=== PATIENT | female | born 1960 | race Asian ===

== ENCOUNTER 2023-11-17 06:25 | Day surgery (SDC) | payer OTHER ==
[~2023-11-17] VITALS: Ht 165.1 cm; Wt 68.1 kg
[2023-11-17] MEDS ORDERED: SODIUM CHLORIDE 0.9% 1,000 ML ONE (06:29)
[2023-11-17] MEDS: SODIUM CHLORIDE 0.9% 1,000 ML IV ONE (07:37)
[2023-11-17] MEDS ORDERED: FentaNYL CITRATE PF 100 MCG/2 ML VIAL ONE (08:02)
[2023-11-17] MEDS ORDERED: MIDAZOLAM HCL 2 MG/2 ML VIAL ONE (08:03)
[2023-11-17] MEDS ORDERED: MONT-40 PO (08:17)
[2023-11-17] MEDS ORDERED: ROSU10TA72 PO (08:17)
[2023-11-17] MEDS ORDERED: FAMO20TA8 PO (08:17)
[2023-11-17] MEDS ORDERED: LEVO112T7 PO (08:17)
[2023-11-17 09:26] VITALS: PULSE 118; RESP 22; O2SAT 99
[2023-11-17] MEDS: MethylPREDNISolone SOD SUCC 125 MG/2 ML VIAL IVP ONE (10:11)
[2023-11-17] MEDS ORDERED: ALBUTEROL SULFATE 2.5 MG/0.5 ML NEB SOLUTION NEB ONE (12:00)
[2023-11-17] MEDS ORDERED: BENZOCAINE 20% 50 MCG/SPRAY 57 GM ONE (12:00)
[2023-11-17] MEDS ORDERED: LIDOCAINE 4% 50 ML SOLUTION ONE (12:00)
[2023-11-17] MEDS ORDERED: LIDOCAINE 2% 11 ML JELLY ONE (12:00)
== END 2023-11-17 13:10 | disposition home or self-care (01) ==
LOC: SURGERY 06:25
PROVIDERS: ATTEND Internal Medicine Critical Care Medicine
DX: R05.3 Chronic cough (principal); R06.2 Wheezing; R49.0 Dysphonia; R04.2 Hemoptysis; R91.8 Other nonspecific abnormal finding of lung field; J38.4 Edema of larynx; B37.0 Candidal stomatitis; E78.00 Pure hypercholesterolemia, unspecified; E89.0 Postprocedural hypothyroidism; Z98.818 Other dental procedure status; Z98.891 History of uterine scar from previous surgery
CPT/HCPCS: 31623; 31624; 71045; 87015; 87070; 87101; 87206; 87220; 88108; 94640; J2250; J3010; J7030; J7613; Z7610